=== PATIENT | male | born 1990 | race Two or more races ===

== ENCOUNTER 2020-02-22 16:28 | Emergency (ER) | payer MEDICAID, OTHER ==
[~2020-02-22] VITALS: Ht 175.3 cm; Wt 68.0 kg
[2020-02-22 16:56] VITALS: BP 117/82
[2020-02-22 17:48] LABS: Basophils # (auto) 0.1 10 ^3/uL (0-0.2); Basophils % (auto) 0.7 % (0.0-2.0); Eosinophils # (auto) 0 10 ^3/uL (0-0.8); Eosinophils % (auto) 0.3 % (0.0-7.0); Hematocrit 46.1 % (41.0-53.0); Hemoglobin 15.1 g/dL (13.5-17.5); Lymphocytes # (auto) 2.1 10 ^3/uL (0.4-5.4); Lymphocytes % (auto) 17.2 % (10.0-50.0); Mean Corpuscular Hemoglobin 30.3 pg (28.0-32.0); Mean Corpuscular Hgb Conc. 32.7 g/dL (32.0-36.0); Mean Corpuscular Volume 92.5 fL (80.0-100.0); Monocytes % (auto) 8.7 % (0.0-12.0); Neutrophils # (auto) 8.8 10 ^3/uL (1.6-8.6); Neutrophils % (auto) 73.1 % (37.0-80.0); Platelet Count (auto) 332 10^3/uL (140-450); Red Blood Cells 4.98 10^6/uL (4.5-5.90); Red Cell Distribution Width 13.5 % (11.8-14.3)
[2020-02-22 18:04] LABS: Albumin 4.1 g/dL (3.4-5.0); Anion Gap 4 (5-15); Blood Urea Nitrogen 6 mg/dL (7-18); Calcium 8.6 mg/dL (8.5-10.1); Carbon Dioxide 31 mmol/L (21-32); Chloride 102 mmol/L (98-107); Glucose 98 mg/dL (74-106); Sodium 137 mmol/L (136-145)
[2020-02-22 18:11] LABS: Alanine Aminotransferase 30 U/L (16-61); Alkaline Phosphatase 85 U/L (45-117); Aspartate Aminotransferase 16 U/L (15-37); BUN/Creatinine Ratio 6.3; Bilirubin, Total 0.4 mg/dL (0.2-1.0); GFR African American 121 mL/min; GFR Non-African American 100 mL/min; Total Protein 7.3 g/dL (6.4-8.2)
[2020-02-22 18:19] LABS: Amphetamine Screen, Urine NEGATIVE (NEGATIVE); Barbiturate Scree,Urine NEGATIVE (NEGATIVE); Benzodiazephine Screen, Urine NEGATIVE (NEGATIVE); Cannabinoid Screen, Urine POSITIVE (NEGATIVE); Cocaine Screen, Urine NEGATIVE (NEGATIVE); Phencyclidine Screen, Urine NEGATIVE (NEGATIVE)
[2020-02-22 18:27] LABS: Opiate Scree,Urine NEGATIVE (NEGATIVE)
[2020-02-22 18:31] LABS: Urine Bacteria FEW /hpf (None Seen); Urine Blood Negative /uL (Negative); Urine Specific Gravity 1.012 (1.001-1.035); Urine WBC 11 /hpf (0 - 3)
[2020-02-22 18:51] LABS: Alcohol, Urine < 3.0 mg/dL (0-10)
== END 2020-02-22 20:14 | disposition left against medical advice (07) ==
LOC: ER 16:28
DX: R51 Headache (principal); Z53.21 Procedure and treatment not carried out due to patient leaving prior to being seen by health care provider
CPT/HCPCS: 36415; 80053; 80307; 81001; 84484; 85025